=== PATIENT | female | born 2005 | race Caucasian/White ===

== ENCOUNTER 2023-11-26 13:27 | Emergency (ER) | payer OTHER ==
[~2023-11-26] VITALS: Ht 162.6 cm; Wt 61.4 kg
[~2023-11-26 13:27] MED LIST: CIPRO 500MG TA500 MG PO; DOXYCYCLINE 10100 MG PO; FLAGYL500 MG PO; MOTRIN 600600 MG/TAB PO
[2023-11-26 14:00] VITALS: TEMP 97.4
[2023-11-26 15:08] VITALS: BP 108/74; PULSE 95
== END 2023-11-26 15:08 | disposition home or self-care (01) ==
LOC: COL.ER 13:27
DX: S93.401A Sprain of unspecified ligament of right ankle, initial encounter (principal); S93.402A Sprain of unspecified ligament of left ankle, initial encounter; X50.1XXA Overexertion from prolonged static or awkward postures, initial encounter